=== PATIENT | male | born 1985 | race Caucasian/White ===

== ENCOUNTER 2020-12-19 15:01 | Emergency (ER) | payer SELFPAY ==
--- NOTE | 2020-12-19 16:23 | Emergency Department Report ---
Chief Complaint: Urogenital-Male Stated Complaint: STD CHECK Time Seen by Provider: 12/19/20 16:19 - HPI History of Present Illness: Patient is a 35-year-old male presents emergency room for routine STD check. He states he received a call from a female that he is involved with and was advised that she has syphilis. Patient presents for syphilis testing. He denies any symptoms at all and reports just for testing. No past medical history. No allergies to medications. Vitals are normal On exam: Non toxic appearing, no acute distress atraumatic, normocephalic normal appearance of the eyes, EOMI, no periorbital edema or ecchymosis moist mucus membranes No respiratory distress, no accessory muscle use A&O x4, no focal neuro deficit Patient is presenting for routine STD panel He is asymptomatic Patient given the appropriate resources Discussed return precautions Medical screen examination performed there is no threat to life or limb at this time - Exam Vital Signs: Vital Signs 12/19/20 15:49 Temperature 98.4 F Pulse Rate 80 Respiratory 16 Rate Blood Pressure 118/73 [Right] O2 Sat by Pulse 98 Oximetry MSE screening note: Focused history and physical exam performed. Due to findings the following was ordered: ED Disposition for MSE Clinical Impression: Concern about STD in male without diagnosis Disposition: DC-01 TO HOME OR SELFCARE Is pt being admited?: No Does the pt Need Aspirin: No Condition: Stable Instructions: Safe Sex Additional Instructions: Please follow-up with the clinic or the health department or to receive a full STD panel. Please have any partners tested and treated as well. Avoid sexual intercourse. Return to emergency room for any new or worsening symptoms. walk in clinic for STD testing: [facility] Address: [address] [place] [id number] Referrals: [facility] [Outside] - 2-3 Days Time of Disposition: 16:22 Print Language: MAORI
[2020-12-19 17:16] VITALS: BP 128/88
== END 2020-12-19 17:16 | disposition home or self-care (01) ==
LOC: ED 15:01
DX: Z71.1 Person with feared health complaint in whom no diagnosis is made (principal)
CPT/HCPCS: 99282

== ENCOUNTER 2021-01-04 16:43 | Emergency (ER) | payer SELFPAY | END 2021-01-04 19:43 | disposition left against medical advice (07) | LOC: ED 16:43 | DX: Z00.8 Encounter for other general examination (principal); Z53.21 Procedure and treatment not carried out due to patient leaving prior to being seen by health care provider ==